=== PATIENT | female | born 1995 | race Caucasian/White ===

== ENCOUNTER → 2018-05-25 12:30 | Observation (INO) ==
--- NOTE | 2018-06-04 22:16 | OB/GYN Progress Note ---
Date of Encounter: 05/25/18 Time of Encounter: 12:00 - Assessment and Plan (1) Fall Status: Acute Pt stable, + FHT, discharged home with labor and when to return to triage precautions. Qualifiers: Encounter type: initial encounter Qualified Code(s): W19.XXXA - Unspecified fall, initial encounter Subjective - Subjective Interval history: Pt states she fell getting out of the bathtub onto elbows, did not strike abdomen. Pt states since fall has felt good movement, denies cramping or vaginal bleeding Antepartum ROS: movement normal, no loss of fluid, no vaginal bleeding, no contractions Objective - Exam FHR comments: FHT 155 Abdomen: Present: normal appearance, soft, gravid
== END | disposition home or self-care (01) ==
LOC: 1NENULAB
PROVIDERS: ADMIT Obstetrics & Gynecology; ATTEND Obstetrics & Gynecology

== ENCOUNTER 2018-09-30 08:00 | Inpatient (IN) ==
[2018-09-30] MEDS ORDERED: Metoclopramide 10 MG/2 ML VIAL IVP PRN (08:12)
[2018-09-30] MEDS ORDERED: Famotidine 20 MG/2 ML VIAL IVP PRN (08:12)
[2018-09-30] MEDS ORDERED: Ondansetron 4 MG/2 ML VIAL IVP PRN (08:12)
[2018-09-30] MEDS ORDERED: Naloxone 0.4 MG/ML INJ IVP PRN (08:12)
[2018-09-30] MEDS ORDERED: Ringers Solution, Lactated 1,000 ML IVC SCH (08:15)
--- NOTE | 2018-09-30 08:47 | OB/GYN History & Physical ---
Date of Encounter: 09/30/18 Time of Encounter: 08:43 Assessment and Plan (1) Postmaturity , 40-42 weeks gestation Current visit: Yes Status: Acute (2) Primiparous in third trimester Current visit: Yes Status: Acute (3) Elective induction of labor planned Current visit: Yes Status: Acute Discussed plan of care with the patient and all questions answered. She will receive PO cytotec and have transcervical daniel placed. Continuous EFM History of Present Illness Chief complaint: Induction of labor postdates HPI: Ms. Ny is a 23 year old female G 2 P 0-0-1-0 at 40 2/7 weeks presents to labor and delivery for induction of labor due to postdates. She denies any regular contractions, vaginal bleeding, or leaking fluid. She has beenfeeling good movement. She has had an uncomplicated . Past Med Surg Social Fam HX - Past Medical History Source: patient Medical history: no medical history Psychiatric history: no psych history - Past Surgical History Surgical History: no surgical history - Social History Smoking Status: Never smoker Smokeless Tobacco Status: No Alcohol use: none Drug use: none - Family History Mother Living Status: Still Living Hx Family Cardiac Disorders: No Hx Family Respiratory Disorders: No Hx Family Cancer: No Hx Family GI Disorders: No Hx Family Endocrine Disorder: No Hx Family Neuromuscular Disorders: No Hx Family Neurologic Disorders: No Hx Family HEENT Disorders: No Hx Family Autoimmune Disorders: No Obstetrical History - Pregnancies : 2 Ab's: 1 - History/Complications History/Complications: none Medications and Allergies Pnv95/Ferrous Fumarate/FA [ Vitamin Tablet] 1 each PO 09/30/18 [History] Allergy/AdvReac Type Severity Reaction Status Date / Time No Known Allergies Allergy Verified 07/06/16 17:18 Review of System OB All systems PM: reviewed and no additional remarkable complaints except as stated - Constitutional Constitutional ROS IM: no chills, no fatigue, no fever(s) - Genitourinary Genitourinary: amenorrhea, no abnormal vaginal bleeding, no pelvic pain - Menstruation Menstruation: amenorrhea Exam - Constitutional Constitutional: well developed, well nourished, no acute distress, average body habitus - HEENT HEENT: EOMI, Normocephaly, Mucus Membranes Moist - Neck Neck exam: full ROM - Lungs Respiratory exam: CTAB - Cardiovascular Cardiovascular exam: RRR - Abdomen Abdomen: Present: bowel sounds normal, gravid, non tender - Vulva Vulva: bilateral: normal - Vagina Vagina: Present: normal moisture - Cervix Dilation: 1 Effacement: 80 Station: -3 - Anus/Rectum Anus/Rectum: Present: normal perianal skin Results All other labs normal. - VTE Reasons for not Prescribing Prophylaxis: Treatment not Indicated - Low risk for VTE
[2018-09-30 09:22] LABS: Basophils % 0.3 %; Eosinophils # 0.2 K/mcL (0.0-0.6); Eosinophils % 1.3 %; Hematocrit 39.8 % (35.3-44.9); Immature Granulocytes % 0.4 % (0-4); Lymphocytes # 2.2 K/mcL (0.6-4.6); Lymphocytes % 16.6 %; Mean Corpuscular HGB Conc 35.2 g/dL (31.6-35.5); Mean Corpuscular Hemoglobin 32.9 pg (28.0-33.3); Mean Corpuscular Volume 93.6 fL (83.0-100.0); Mean Platelet Volume 10.9 fL (9.4-12.4); Monocytes % 7.5 %; Platelet Count 184 K/mcL (140-400); Red Blood Count 4.25 M/mcL (3.82-4.97); Red Cell Distribution Width 12.4 % (11.5-14.5); Segmented Neutrophils % 73.9 %
--- NOTE | 2018-09-30 09:29 | Anesthesia Evaluation PreOp ---
Date of Encounter: 09/30/18 Time of Encounter: 09:27 - Past History Planned Operation: juan Cardiac History: Denies any Significant Hx Pulmonary History: Denies Any Significant HX LAST PICKER History: Denies Any Significant HX Other Medical History: GERD Anesthesia History: No Prior Anesthetic Complications Alcohol Use: none Drug use: none Medications and Allergies Pnv95/Ferrous Fumarate/FA [ Vitamin Tablet] 1 each PO DAILY 09/30/18 [History] Tums 1 tab PO PRN PRN 09/30/18 [History] Allergy/AdvReac Type Severity Reaction Status Date / Time No Known Allergies Allergy Verified 07/06/16 17:18 - Meds/Allergy Pre-op Review Medications Reviewed: Yes Allergies Reviewed: Yes Beta Blockers on Current Med List: No Anesthesia Results - Labs 09/30/18 09:02 Anesthesia Exam 114/81 114 15 fht 133 Height: 5'4" Weight: 189 NPO (# of Hours): 2 Pain Scale: 4 Pain Scale Used: Numeric (1 - 10) - HEENT Pupil (Motor): Pupils equal Mallampati: II Teeth: Normal Oral Opening: Greater than 3 - LAST PICKER LOC: Oriented LAST PICKER Motor: Normal RUE, Normal LUE, Normal RLE, Normal LLE, Normal Face LAST PICKER Sensory: Normal: RUE, LUE, RLE, LLE, Face - Cardiac Rhythm: Regular Murmur: None - Pulmonary Breath Sounds: bilateral Clear Respiratory Effort: Symmetrical Anesthesia Assess/Plan ASA Score: 2 Level of consciousness: Cooperative Anesthetic Plan: Epidural Autologous Blood: No Monitoring Plan: Standard Monitors Recovery Plan: Other (risks discussed questions answered consented)
[2018-09-30] MEDS: miSOPROStol 25 MCG TABLET PO PRN ×2 (09:30→14:07)
--- NOTE | 2018-09-30 09:32 | OB Labor Progress Note ---
Date of Encounter: 09/30/18 Time of Encounter: 09:29 Labor Progress Note - Subjective Subjective: Patient is without complaints. She is feeling a little nauseated after the IV - Cervix Cervix: 2/90/-3 vertex - Heart Tones Heart Tones: category 1 - Interventions Interventions: Transcervical daniel placed with 40 ml fluid. Patient tolerated the procedure well. - Plan Plan: 50 mcg cytotec PO will be given. Anticipate vaginal delivery.
[2018-09-30 09:40] LABS: Amphetamine Screen,Urine Negative ng/mL (Cutoff=1000); Barbiturate Screen,Urine Negative ng/mL (Cutoff=200); Benzodiazepines Screen,Urine Negative ng/mL (Cutoff=200); Cannabinoid Screen,Urine Negative ng/mL (Cutoff = 50); Cocaine Screen,Urine Negative ng/mL (Cutoff= 300); Opiate Screen,Urine Negative ng/mL (Cutoff=300); Phencyclidine Screen,Urine Negative ng/mL (Cutoff=25)
[2018-09-30] MEDS: *HR* Nalbuphine 10 MG/ML AMPUL IVP PRN ×2 (12:22→17:22)
[2018-09-30] MEDS ORDERED: Oxytocin 20 units/ LR 1000 mL 20 UNIT/1,000 ML BAG IVC SCH (14:00)
--- NOTE | 2018-09-30 17:24 | OB Labor Progress Note ---
Date of Encounter: 09/30/18 Time of Encounter: 17:22 Labor Progress Note - Subjective Subjective: Patient denies any concerns or complaints. She is up on birthing ball. - Cervix Cervix: 6/80/-3 vertex - Heart Tones Heart Tones: category 1 - [place]: q2-4 minutes - Interventions Interventions: AROM with clear fluid. - Plan Plan: Continue EFM. Add pitocin PRN.
[2018-09-30] MEDS ORDERED: *HR* FentaNYL (PF) 100 MCG/2 ML VIAL EP ONE (17:36)
[2018-09-30] MEDS ORDERED: *HR* Ropivacaine/PF 0.2% 20 ML VIAL EP ONE (17:36)
[2018-09-30] MEDS ORDERED: Lidocaine -MPF 2% 5 ML VIAL ONE (17:38)
[2018-09-30] MEDS ORDERED: Epidural Premix (fent/bupiv) 110 ML EP ONE (17:39)
[2018-09-30] MEDS ORDERED: Epidural Premix (fent/bupiv) 110 ML EP SCH (17:45)
--- NOTE | 2018-09-30 18:06 | Anesthesia Procedures ---
Addendum entered and electronically signed by James Venegas CRNA 10/01/18 07:07: Infant Delivery Date: 09/30/18 Infant Delivery Time: 22:25 Original Note: Date of Encounter: 09/30/18 Time of Encounter: 18:04 Procedures: Anesthesia - Epidural/Spinal Patient ID/Chart reviewed: Yes Patient examined: Yes OB Eval: Gestational age: 40 OB Eval: : 2 OB Eval: Hx Para: 0 OB Eval: Dilated at (cm): 6 OB Eval: Contractions: Non-stressed pattern Consent Obtained: Yes Supplemental Oxygen: None/Room Air Site Prep: Aseptic Technique, Sterile prep and drape, 0.5% Chlorhexidine/Alcohol Patient position: upright Local Anesthetic: Lidocaine 1% Amount of Local Anesthetic used: 3 Touhy Needle Gauge: 18 Touhy Needle Depth (cm): 7 Catheter Depth at Skin (cm): 15 Test Dose (1.5% Lido + Epi): Volume given (mls): 3 Test Dose Result: Negative Loading Dose: Fentanyl (mcg): 100 Loading Dose: Other: rop 0.2% 10cc Loading Dose Administered: Thru Touhy Needle Infusion Med: 0.125% Bupivacaine w/ 2 mcg/ml Fentanyl Infusion Rate (mls/hr): 15 (pcea 5cc q30") Catheter Secured in Place: Tegaderm Interspace Used: L2-L3 Loss of Resistance (CELESTE): Yes Blood: No CSF: No Paresthesia: No Procedure: aseptic, emilio well, effective Vitals + FHT's: 128/78 98 fht 125
--- NOTE | 2018-09-30 19:48 | OB Labor Progress Note ---
Date of Encounter: 09/30/18 Time of Encounter: 19:44 Labor Progress Note - Subjective Subjective: Patient is comfortable after the epidural. She denies any complaints at this time. - Cervix Cervix: 6/80/-2 - Heart Tones Heart Tones: category 1, +scalp stim with the vaginal exam - [place]: qq 3-4 minutes - Interventions Interventions: IUPC placed without difficulty - Plan Plan: Begin Pitocin now
--- NOTE | 2018-09-30 22:48 | OB/GYN Procedure Note ---
Delivery - Delivery Date: 09/30/18 Provider: Laureen Duran Intrapartum events: none Delivery induction: AROM, oxytocin, misoprostol Delivery monitor: external FHT, external uterine, internal uterine Anesthesia: epidural Quantitated Blood Loss: 100 - Infant (s) A Infant Delivery Date: 09/30/18 Infant Delivery Time: 22:25 Presentation: vertex Position: WHITLEY Route of delivery: Gender: Female Viability: Viable Pounds: 7 Ounces: 12 Weight Gram: 3.52 kg at 1 minute: 7 at 5 mins: 9 Shoulder Dystocia: not encountered Specimens collected: cord blood Placenta: spontaneous Cord: nuchal cord, 3 umbilical vessels, delivered through nuchal - Repair Episiotomy: none Laceration Description: Labial (right,hemostatic without repair) - Complications Delivery complications: none Delivery comments: Called to room with patient complete and +2 station. Under maternal effort she delivered a viable female weighing 7 lbs. 12 oz. and Apgars 7 and 9 at one and 5 minutes respectively over an intact perineum. Following delivery of the head a tight nuchal cord was noted the delivered through. There was no shoulder dystocia encountered. Following the delivery the was placed on mom's abdomen and the cord was quickly double clamped and cut. was immediately taken to the warmer. Cord blood was collected. Placenta delivered spontaneously, complete, and intact with three-vessel cord. Right labial laceration noted that was hemostatic without repair. Mother and infant are recovering in the LDR in stable condition. - Disposition Mom disposition: stable in LDR [place] disposition: stable in LDR
[2018-10-01] MEDS ORDERED: Acetaminophen 325 MG TABLET PO PRN (01:44)
[2018-10-01] MEDS ORDERED: Oxytocin 20 units/ LR 1000 mL 20 UNIT/1,000 ML BAG IVC SCH (01:44)
[2018-10-01] MEDS: Ibuprofen 600 MG TABLET PO PRN ×2 (07:40→17:55)
[2018-10-01] MEDS: Prenatal Vit/FA 1 EACH TABLET PO SCH (07:40)
--- NOTE | 2018-10-01 09:38 | OB/GYN Progress Note ---
Date of Encounter: 10/01/18 Time of Encounter: 09:36 - Assessment and Plan (1) Vaginal delivery Current Visit: Yes Status: Acute S/P vaginal delivery day 1 Anticipate discharge home tomorrow POC per consult with Dr Galdamez Subjective - Subjective Principal diagnosis: S/P vaginal delivery Interval history: S/P Day 1 Pain is well controlled Lochia light without clots Tolerating regular diet; passing flatus Voiding without difficulty VSS Anticipate discharge home tomorrow POC per consult with Dr Galdamez Patient reports: appetite normal, voiding normally, pain well controlled, ambulating normally [place]: doing well, nursing well Objective - Latest Vital Signs Latest vital signs: Vital Signs Temp Pulse Resp BP Pulse Ox 10/01/18 07:40 98.1 F 84 16 106/74 98 10/01/18 03:50 98.5 F 94 14 107/67 98 10/01/18 02:40 98.9 F 91 14 122/73 98 10/01/18 01:10 98.3 F 87 16 132/87 97 Intake and Output 09/30/18 10/01/18 10/01/18 23:59 07:59 15:59 Output Total 1999 Balance -1999 Output: Urine 1999 Other: # Voids 1 Weight 86.5 kg Patient Weight 10/01/18 23:59 Weight 86.5 kg - Exam Lungs: bilateral: normal Chest: Normal S1, Normal S2 Extremities: Present: normal Abdomen: Present: normal appearance, soft. Absent: gravid Uterus: Present: normal, firm Uterus Position: At Umbilicus, Midline - Labs Labs: Laboratory Results - last 24 hr 09/30/18 09/30/18 09:02 09:02 Urine Opiates Screen Negative Ur Barbiturates Screen Negative Ur Phencyclidine Scrn Negative Ur Amphetamines Screen Negative U Benzodiazepines Scrn Negative Urine Cocaine Screen Negative U Marijuana (THC) Screen Negative Hep Bs Antigen Nonreactive
[2018-10-02] MEDS: Ibuprofen 600 MG TABLET PO PRN (04:38)
[2018-10-02 07:51] VITALS: BP 117/82
[2018-10-02] MEDS: Prenatal Vit/FA 1 EACH TABLET PO SCH (08:23)
--- NOTE | 2018-10-02 10:16 | Discharge Summary ---
Date of Encounter: 10/02/18 Time of Encounter: 10:16 - Discharge Diagnosis (1) Status post normal vaginal delivery Priority: Secondary Status: Acute Comments: Status post induced vaginal delivery at 40 weeks and 2 days Doing well, meeting day 2 milestones Pain well controlled Appetite normal, ambulating without dizziness No dysuria, has not yet had BM Lochia light Mood is appropriate Healthy female 7lb 12oz with 7/9 Discussed safe spacing and control options, however she is undecided on methods at this time Well to discharge with follow up in 4 weeks (2) Postmaturity , 40-42 weeks gestation Priority: Primary Status: Acute Comments: 23 y/o who presented for IOL at 40 weeks + 2 days Now (3) Breast feeding status of mother Priority: Secondary Status: Acute Comments: support as needed. Patient states she has a breast pump at home. - Discharge Medications Prescriptions: RX: Ibuprofen [Motrin] 600 mg PO Q6HR PRN #30 tablet PRN Reason: Cramping RX: Docusate [Colace] 100 mg PO BID #20 capsule RX: Ferrous Sulfate 325 mg PO DAILY #90 tablet Home Medications: RX: Pnv95/Ferrous Fumarate/FA [ Vitamin Tablet] 1 each PO DAILY 09/30/18 [History] Tums 1 tab PO PRN PRN 09/30/18 [History] RX: Docusate [Colace] 100 mg PO BID #20 capsule 10/02/18 [Rx] RX: Ferrous Sulfate 325 mg PO DAILY #90 tablet 10/02/18 [Rx] RX: Ibuprofen [Motrin] 600 mg PO Q6HR PRN #30 tablet 10/02/18 [Rx] Allergies/Adverse Reactions: Allergy/AdvReac Type Severity Reaction Status Date / Time No Known Allergies Allergy Verified 07/06/16 17:18 Data Procedures and tests throughout hospitalization: Laboratory Tests 09/30/18 09/30/18 09/30/18 09:02 09:02 09:02 WBC 13.5 H RBC 4.25 Hgb 14.0 Hct 39.8 MCV 93.6 MCH 32.9 MCHC 35.2 RDW 12.4 Plt Count 184 MPV 10.9 Immature Gran % 0.4 Seg Neutrophils % 73.9 Lymphocytes % 16.6 Monocytes % 7.5 Eosinophils % 1.3 Basophils % 0.3 Neutrophils # 10.0 H Lymphocytes # 2.2 Monocytes # 1.0 Eosinophils # 0.2 Basophils # 0.0 Urine Opiates Screen Negative Ur Barbiturates Screen Negative Ur Phencyclidine Scrn Negative Ur Amphetamines Screen Negative U Benzodiazepines Scrn Negative Urine Cocaine Screen Negative U Marijuana (THC) Screen Negative Ur Drug Screen Interp See Below Hep Bs Antigen Nonreactive Date of admission: 09/30/18 08:07 Primary care physician: Kianna Lopez MD Consults: 10/01/18 01:44 Consult to Ceramist [CONS] Routine Comment: Vaginal delivery, consult needed Discharging clinician: Renee Wallace Anticipated date of discharge: 10/02/18 - Patient Status Disposition: Home, Self-Care Condition: Good Functional capacity at discharge: independent ambulation Overall status at discharge: patient is back to baseline - Discharge Instructions Follow Up With: Kianna Lopez MD [Primary Care Provider] - Laureen Duran DO [Partnered Physician] - - Diet and Activity Activity: resume usual activities as tolerated Diet: advance to your usual diet Hospital Course Reason for admission: induction of labor Delivery: Episiotomy: none Laceration: other (superficial labial laceration, not repaired) Other procedures: none complications: none Discharge diagnosis: IUP at term delivered [place] baby: female Hospital course: Called to room with patient complete and +2 station. Under maternal effort she delivered a viable female weighing 7 lbs. 12 oz. and Apgars 7 and 9 at one and 5 minutes respectively over an intact perineum. Following delivery of the head a tight nuchal cord was noted the delivered through. There was no shoulder dystocia encountered. Following the delivery the infant was placed on mom's abdomen and the cord was quickly double clamped and cut. Infant was immediately taken to the warmer. Cord blood was collected. Placenta delivered spontaneously, complete, and intact with three-vessel cord. Right labial laceration noted that was hemostatic without repair. Mother and infant are recovering in the LDR in stable condition. Time Attestation: Total time spent providing and/or coordinating discharge services: Time Spent: Less than 30 minutes Exam - Constitutional Vitals: Temp Pulse Resp BP Pulse Ox 97.7 F 78 14 117/82 97 10/02/18 07:50 10/02/18 07:50 10/02/18 07:50 10/02/18 07:50 10/02/18 07:50 General appearance IM: A&O X 3, pleasant, answers questions appropriately - Respiratory Respiratory exam: Present: CTAB - Cardiovascular Cardiovascular exam IM: Present: RRR, +S1, +S2 - GI/Abdominal GI/Abdominal exam IM: normal bowel sounds, soft - Uterine Tone: Firm Uterus Position: 2 Fingers Below Umbilicus - Extremities Exam Extremities exam IM: Present: normal inspection, pedal edema. Absent: calf tenderness, tenderness - Neurological Exam Neurological exam: CN II-XII intact, oriented X3 - Psychiatric Additional comments: Mood appropriate
== END 2018-10-02 15:30 | disposition home or self-care (01) | DRG 560 ==
LOC: 1NENULAB 08:07 → 1NENUOBS 10-01 01:10
PROVIDERS: ADMIT Registered Nurse; ATTEND Registered Nurse